=== PATIENT | female | born 1960 | race Caucasian/White ===

== ENCOUNTER → 2018-10-12 | Outpatient (CLI) | payer BC ==
--- NOTE | 2018-10-13 04:32 | MR ---
EXAMINATION TYPE: MR brain and iac wo/w con DATE OF EXAM: 10/12/2018 COMPARISON: None HISTORY: Asymmetric hearing loss TECHNIQUE: Multiplanar, multisequence images of the brain and brainstem is performed without and with IV contras t, utilizing 6 mL intravenous Gadavist . FINDINGS: Ventricles of normal size. There is no mass effect nor midline shift. There is no sign of i ntracranial hemorrhage. Brainstem is intact. Corpus callosum is intact. There are scattered small foc i of high signal at the weiner-white matter junction of both cerebral hemispheres. Total number is appr oximately 10 and these measure up to 6 mm. The sella turcica appears intact. There is no evidence of a cortical infarct. There is good visualization of the internal auditory canals which are fairly symmetric. There is norm al appearance of the acoustic nerve and vestibular nerve. There is no evidence of cerebellopontine an gle mass. There is no pathologic enhancement. There is normal contrast opacification of the venous si nuses. The optic chiasm appears normal. Pituitary stalk is in the midline. The temporal bones have no rmal signal pattern. IMPRESSION: Negative MR scan of the posterior fossa. No evidence of cause for hearing loss. There are mild white matter signal changes at could relate to microvascular ischemia.
== END | disposition home or self-care (01) ==
LOC: RADMRIMAIN 06:04
PROVIDERS: ATTEND Otolaryngology Otology & Neurotology
DX: I67.82 Cerebral ischemia (principal); R90.89 Other abnormal findings on diagnostic imaging of central nervous system; H91.8X9 Other specified hearing loss, unspecified ear
CPT/HCPCS: 70553

== ENCOUNTER 2021-05-10 07:45 | Emergency (ER) | payer BC, OTHER ==
[2021-05-10 07:52] VITALS: TEMP 97.5
[2021-05-10] MEDS ORDERED: SODIUM CHLORIDE 0.9% 1,000 ML IV STA (08:10)
--- NOTE | 2021-05-10 08:39 | XR ---
EXAMINATION TYPE: XR chest 2V DATE OF EXAM: 05/10/2021 COMPARISON: None HISTORY: 60 year-old female shortness of breath, difficulty breathing TECHNIQUE: AP and lateral views FINDINGS: The heart is normal size. Aorta and pulmonary vasculature within normal limits. Hazy lower lung densi ties related to overlying soft tissue. No consolidation or pleural effusion. IMPRESSION: No acute cardiopulmonary process.
[2021-05-10 08:41] LABS: Basophils # (A) 0.1 k/uL (0-0.2); Basophils % (A) 1 %; Eosinophils # (A) 0.1 k/uL (0-0.7); Eosinophils % (A) 1 %; HCT 48.5 % (34.0-46.0); HGB 15.6 gm/dL (11.4-16.0); Lymphocytes # (A) 1.3 k/uL (1.0-4.8); Lymphocytes % (A) 17 %; MCH 32.7 pg (25.0-35.0); MCHC 32.2 g/dL (31.0-37.0); MCV 101.5 fL (80.0-100.0); Mean Platelet Volume 8.4; Monocytes # (A) 0.5 k/uL (0-1.0); Monocytes % (A) 6 %; Neutrophils # (A) 5.7 k/uL (1.3-7.7); Neutrophils % (A) 73 %; Platelet Count 194 k/uL (150-450); RBC 4.78 m/uL (3.80-5.40); RDW 12.3 % (11.5-15.5); WBC 7.8 k/uL (3.8-10.6)
[2021-05-10 08:50] LABS: Appearance,Urine Clear (Clear); Bilirubin,Urine Negative (Negative); Blood,Urine Negative (Negative); Color,Urine Colorless; Glucose,Urine (UA) Negative (Negative); Ketones,Urine Negative (Negative); Leukocyte Esterase,Urine Negative (Negative); Nitrite,Urine Negative (Negative); Protein,Urine Negative (Negative); Specific Gravity,Urine 1.002 (1.001-1.035); Urobilinogen,Urine <2.0 mg/dL (<2.0)
[2021-05-10 08:51] LABS: ALT 15 U/L (4-34); AST 23 U/L (14-36); African American GFR (CKD) >90 (>60 ml/min/1.73 sqM); Albumin 4.2 g/dL (3.5-5.0); Alkaline Phosphatase 103 U/L (38-126); Anion Gap 7 mmol/L; Blood Urea Nitrogen 9 mg/dL (7-17); Calcium 9.7 mg/dL (8.4-10.2); Carbon Dioxide 28 mmol/L (22-30); Chloride 102 mmol/L (98-107); Creatine Kinase 88 U/L (30-135); Glucose 88 mg/dL (74-99); Non-African American GFR(CKD) >90 (>60 ml/min/1.73 sqM); Potassium 3.6 mmol/L (3.5-5.1); Sodium 137 mmol/L (137-145); Total Bilirubin 0.7 mg/dL (0.2-1.3); Total Protein 6.7 g/dL (6.3-8.2)
[2021-05-10 08:53] LABS: INR 0.9 (<1.2); Partial Thromboplastin Time 24.3 sec (22.0-30.0)
--- NOTE | 2021-05-10 09:01 | ED ---
SOB HPI - General Chief Complaint: Shortness of Breath Stated Complaint: SOB, fever, body aches Time Seen by Provider: 05/10/21 07:50 Source: patient Mode of arrival: ambulatory Limitations: no limitations - History of Present Illness Initial Comments: 60-year-old previously healthy female presents emergency department with reported symptoms of upper respiratory infection. She admits that her symptoms have been present for the past 2-1/2 months. Symptoms worsened proximally 3 months ago. Admits to diffuse body aches, fatigue, cough or shortness of breath. She saw her primary care physician and was tested for Covid which was negative. She denies any previous history of cardiac or pulmonary disease. Patient is a smoker. Denies chest pain. No headaches. No visual changes. She admits to nausea with poor appetite. Denies fevers. Unknown weight loss. Admits to some epigastric discomfort. No previous history of peptic ulcer disease. Admits to normal bowel and bladder habits. No cuts patient, diarrhea, melenic stools or hematochezia. No other alleviating, precipitating modifying factors - Related Data Home Medications Medication Instructions Recorded Confirmed Alendronate Sodium [Fosamax] 70 mg PO Q7DAYS 11/19/15 02/26/16 Cetirizine HCl [Zyrtec] 10 mg PO DAILY 02/20/16 02/26/16 Fluticasone Nasal [place] [Flonase 2 spr EA NOSTRIL HS 02/20/16 02/26/16 Nasal [place]] Previous Rx's Medication Instructions Recorded Acetaminophen-Codeine 300-30mg 1 - 2 tab PO Q6H PRN #45 tablet 02/26/16 [Tylenol #3] Amoxicillin/Potassium Clav 1 each PO Q12HR #20 tab 02/26/16 [Augmentin 875-125 Tablet] Ofloxacin 0.3% Ophth Soln [Ocuflox 5 - 7 drops LEFT EAR BID #10 bottle 02/26/16 Ophth Soln] diazePAM [Valium] 5 - 10 mg PO QID PRN #65 tab 02/26/16 Albuterol Sulfate [Proair Hfa] 1 - 2 puff INHALATION Q6HR PRN 05/10/21 #8.5 gm predniSONE [Deltasone] 20 mg PO BID #10 tab 05/10/21 Allergies Allergy/AdvReac Type Severity Reaction Status Date / Time dexamethasone [From Decadron] Allergy Rash/Hives Verified 05/10/21 07:52 dexamethasone sod phosphate Allergy Rash/Hives Verified 05/10/21 07:52 [From Decadron] ondansetron HCl Allergy Vomiting Verified 05/10/21 07:52 [From Zofran (as hydrochloride)] adhesive AdvReac Itching Verified 05/10/21 07:52 Review of Systems ROS Statement: Those systems with pertinent positive or pertinent negative responses have been documented in the HPI. ROS Other: All systems not noted in ROS Statement are negative. Past Medical History Past Medical History: No Reported History Additional Past Medical History / Comment(s): fluid in both ears History of Any Multi-Drug Resistant Organisms: None Reported Past Surgical History: Appendectomy, Section, Cholecystectomy, Ear Surgery, Orthopedic Surgery, Tonsillectomy, Tubal Ligation Additional Past Surgical History / Comment(s): patch han eardrums, left foot bunionectomy Past Anesthesia/Blood Transfusion Reactions: No Reported Reaction Additional Past Anesthesia/Blood Transfusion Reaction / Comment(s): got sick from nausea medication given in preop-not sure of name Past Psychological History: No Psychological Hx Reported Smoking Status: Current every day smoker Past Alcohol Use History: None Reported Past Drug Use History: None Reported - Past Family History Mother Family Medical History: Cancer General Exam Limitations: no limitations Course Vital Signs 05/10/21 05/10/21 05/10/21 07:46 08:37 10:16 Temperature 97.5 F L Pulse Rate 87 66 Respiratory 16 20 18 Rate Blood Pressure 101/69 127/71 O2 Sat by Pulse 98 100 Oximetry Medical Decision Making - Medical Decision Making Upon arrival patient was placed into room 16. Thorough history and physical was performed. 12-lead EKG was obtained. Laboratory studies were conducted. IV is established patient is given a liter bolus of normal saline. Chest x-rays performed. Laboratory studies are reviewed and are all within normal limits. Troponin negative. Covid is negative. Chest x-ray demonstrates no acute cardiopulmonary process. Results are discussed with the patient. I did discuss diagnosis, differential treatment options. At this time the patient will be placed on a course of steroids for persisting cough and symptoms of upper respiratory infection. She'll be discharged home. Primary care doctor in 2-4 days. Additional testing due to the patient's symptoms are recommended including stress testing, echo, EGD, pulmonary function testing. If the patient has any new symptoms or worsening symptoms she should return to the emergency room. Patient agreed to the treatment plan was discharged home in stable condition - Lab Data Result diagrams: 05/10/21 08:21 05/10/21 08:21 Lab Results 05/10/21 05/10/21 05/10/21 Range/Units 08:21 08:21 08:21 WBC 7.8 (3.8-10.6) k/uL RBC 4.78 (3.80-5.40) m/uL Hgb 15.6 (11.4-16.0) gm/dL Hct 48.5 H (34.0-46.0) % MCV 101.5 H (80.0-100.0) fL MCH 32.7 (25.0-35.0) pg MCHC 32.2 (31.0-37.0) g/dL RDW 12.3 (11.5-15.5) % Plt Count 194 (150-450) k/uL MPV 8.4 Neutrophils % 73 % Lymphocytes % 17 % Monocytes % 6 % Eosinophils % 1 % Basophils % 1 % Neutrophils # 5.7 (1.3-7.7) k/uL Lymphocytes # 1.3 (1.0-4.8) k/uL Monocytes # 0.5 (0-1.0) k/uL Eosinophils # 0.1 (0-0.7) k/uL Basophils # 0.1 (0-0.2) k/uL PT 10.0 (9.0-12.0) sec INR 0.9 (<1.2) APTT 24.3 (22.0-30.0) sec Sodium (137-145) mmol/L Potassium (3.5-5.1) mmol/L Chloride (98-107) mmol/L Carbon Dioxide (22-30) mmol/L Anion Gap mmol/L BUN (7-17) mg/dL Creatinine (0.52-1.04) mg/dL Est GFR (CKD-EPI)AfAm (>60 ml/min/1.73 sqM) Est GFR (CKD-EPI)NonAf (>60 ml/min/1.73 sqM) Glucose (74-99) mg/dL Plasma Lactic Acid [place] (0.7-2.0) mmol/L Calcium (8.4-10.2) mg/dL Total Bilirubin (0.2-1.3) mg/dL AST (14-36) U/L ALT (4-34) U/L Alkaline Phosphatase (38-126) U/L Creatine Kinase (30-135) U/L Troponin I (0.000-0.034) ng/mL NT-Pro-B Natriuret Pep pg/mL Total Protein (6.3-8.2) g/dL Albumin (3.5-5.0) g/dL TSH (0.465-4.680) mIU/L Urine Color Colorless Urine Appearance Clear (Clear) Urine pH 6.0 (5.0-8.0) Ur Specific [place] 1.002 (1.001-1.035) Urine Protein Negative (Negative) Urine Glucose (UA) Negative (Negative) Urine Ketones Negative (Negative) Urine Blood Negative (Negative) Urine Nitrite Negative (Negative) Urine Bilirubin Negative (Negative) Urine Urobilinogen <2.0 (<2.0) mg/dL Ur Leukocyte Esterase Negative (Negative) Coronavirus (PCR) (Not Detectd) 05/10/21 05/10/21 05/10/21 Range/Units 08:21 08:21 08:21 WBC (3.8-10.6) k/uL RBC (3.80-5.40) m/uL Hgb (11.4-16.0) gm/dL Hct (34.0-46.0) % MCV (80.0-100.0) fL MCH (25.0-35.0) pg MCHC (31.0-37.0) g/dL RDW (11.5-15.5) % Plt Count (150-450) k/uL MPV Neutrophils % % Lymphocytes % % Monocytes % % Eosinophils % % Basophils % % Neutrophils # (1.3-7.7) k/uL Lymphocytes # (1.0-4.8) k/uL Monocytes # (0-1.0) k/uL Eosinophils # (0-0.7) k/uL Basophils # (0-0.2) k/uL PT (9.0-12.0) sec INR (<1.2) APTT (22.0-30.0) sec Sodium 137 (137-145) mmol/L Potassium 3.6 (3.5-5.1) mmol/L Chloride 102 (98-107) mmol/L Carbon Dioxide 28 (22-30) mmol/L Anion Gap 7 mmol/L BUN 9 (7-17) mg/dL Creatinine 0.61 (0.52-1.04) mg/dL Est GFR (CKD-EPI)AfAm >90 (>60 ml/min/1.73 sqM) Est GFR (CKD-EPI)NonAf >90 (>60 ml/min/1.73 sqM) Glucose 88 (74-99) mg/dL Plasma Lactic Acid [place] 0.8 (0.7-2.0) mmol/L Calcium 9.7 (8.4-10.2) mg/dL Total Bilirubin 0.7 (0.2-1.3) mg/dL AST 23 (14-36) U/L ALT 15 (4-34) U/L Alkaline Phosphatase 103 (38-126) U/L Creatine Kinase 88 (30-135) U/L Troponin I <0.012 (0.000-0.034) ng/mL NT-Pro-B Natriuret Pep pg/mL Total Protein 6.7 (6.3-8.2) g/dL Albumin 4.2 (3.5-5.0) g/dL TSH 1.130 (0.465-4.680) mIU/L Urine Color Urine Appearance (Clear) Urine pH (5.0-8.0) Ur Specific [place] (1.001-1.035) Urine Protein (Negative) Urine Glucose (UA) (Negative) Urine Ketones (Negative) Urine Blood (Negative) Urine Nitrite (Negative) Urine Bilirubin (Negative) Urine Urobilinogen (<2.0) mg/dL Ur Leukocyte Esterase (Negative) Coronavirus (PCR) (Not Detectd) 05/10/21 05/10/21 Range/Units 08:21 08:21 WBC (3.8-10.6) k/uL RBC (3.80-5.40) m/uL Hgb (11.4-16.0) gm/dL Hct (34.0-46.0) % MCV (80.0-100.0) fL MCH (25.0-35.0) pg MCHC (31.0-37.0) g/dL RDW (11.5-15.5) % Plt Count (150-450) k/uL MPV Neutrophils % % Lymphocytes % % Monocytes % % Eosinophils % % Basophils % % Neutrophils # (1.3-7.7) k/uL Lymphocytes # (1.0-4.8) k/uL Monocytes # (0-1.0) k/uL Eosinophils # (0-0.7) k/uL Basophils # (0-0.2) k/uL PT (9.0-12.0) sec INR (<1.2) APTT (22.0-30.0) sec Sodium (137-145) mmol/L Potassium (3.5-5.1) mmol/L Chloride (98-107) mmol/L Carbon Dioxide (22-30) mmol/L Anion Gap mmol/L BUN (7-17) mg/dL Creatinine (0.52-1.04) mg/dL Est GFR (CKD-EPI)AfAm (>60 ml/min/1.73 sqM) Est GFR (CKD-EPI)NonAf (>60 ml/min/1.73 sqM) Glucose (74-99) mg/dL Plasma Lactic Acid [place] (0.7-2.0) mmol/L Calcium (8.4-10.2) mg/dL Total Bilirubin (0.2-1.3) mg/dL AST (14-36) U/L ALT (4-34) U/L Alkaline Phosphatase (38-126) U/L Creatine Kinase (30-135) U/L Troponin I (0.000-0.034) ng/mL NT-Pro-B Natriuret Pep 438 pg/mL Total Protein (6.3-8.2) g/dL Albumin (3.5-5.0) g/dL TSH (0.465-4.680) mIU/L Urine Color Urine Appearance (Clear) Urine pH (5.0-8.0) Ur Specific [place] (1.001-1.035) Urine Protein (Negative) Urine Glucose (UA) (Negative) Urine Ketones (Negative) Urine Blood (Negative) Urine Nitrite (Negative) Urine Bilirubin (Negative) Urine Urobilinogen (<2.0) mg/dL Ur Leukocyte Esterase (Negative) Coronavirus (PCR) Not Detected (Not Detectd) - EKG Data EKG Comments: EKG demonstrate some a sinus rhythm with a ventricular rate of 66. LA interval 160. QRS 76. QTC of 431. No acute ST segment elevations or depressions Disposition Clinical Impression: Cough, Myalgia Disposition: HOME SELF-CARE Condition: Stable Instructions (If sedation given, give patient instructions): Shortness of [place] th (ED) Additional Instructions: All of your lab testing in the emergency department was negative. I do recommend that you have a stress test and an echo because of your symptoms. Further testing may include an EGD, colonoscopy and pulmonary function testing. If you have any new or worsening symptoms return to the emergency room. I do recommend that you see your PCP in 2-4 days. Prescriptions: predniSONE [Deltasone] 20 mg PO BID #10 tab Albuterol Sulfate [Proair Hfa] 1 - 2 puff INHALATION Q6HR PRN #8.5 gm PRN Reason: Cough Is patient prescribed a controlled substance at d/c from ED?: No Referrals: Lamine Bah MD [Primary Care Provider] - 1-2 days Time of Disposition: 09:47
[2021-05-10] MEDS ORDERED: predniSONE 20 MG TAB PO STA (09:44)
[2021-05-10 10:18] VITALS: BP 127/71; PULSE 66; RESP 18
== END 2021-05-10 10:19 | disposition home or self-care (01) ==
LOC: EC 07:45
DX: R05 Cough (principal); M79.10 Myalgia, unspecified site; F17.200 Nicotine dependence, unspecified, uncomplicated; Z20.822 Contact with and (suspected) exposure to COVID-19; Z88.1 Allergy status to other antibiotic agents; Z90.49 Acquired absence of other specified parts of digestive tract; Z90.89 Acquired absence of other organs; Z98.51 Tubal ligation status
CPT/HCPCS: 99285; 96360; 36415; 93005; 83880; 80053; 84443; 82550; 83605; 84484; 85025; 85610; 85730; 81003; 87635; 71046; J7512